=== PATIENT | male | born 1935 | race Caucasian/White ===

== ENCOUNTER 2018-07-07 13:43 | Emergency (ER) | payer MEDICARE, BC ==
[~2018-07-07] VITALS: Ht 177.8 cm; Wt 95.5 kg
[2018-07-07 13:51] VITALS: BP 123/76
[2018-07-07] MEDS ORDERED: acetaminophen 325mg tablet PO ONE (15:05)
[2018-07-07] MEDS ORDERED: HYDR-3965 PO (15:13)
[2018-07-07] MEDS ORDERED: ONDA4TAB9 PO (15:13)
== END 2018-07-07 15:42 | disposition home or self-care (01) ==
LOC: ER 13:43
DX: S73.102A Unspecified sprain of left hip, initial encounter (principal); Z98.890 Other specified postprocedural states; Z79.899 Other long term (current) drug therapy; W11.XXXA Fall on and from ladder, initial encounter; Y93.89 Activity, other specified; Y92.89 Other specified places as the place of occurrence of the external cause; Y99.8 Other external cause status
CPT/HCPCS: 72192; 73502; 99284

== ENCOUNTER 2019-06-11 19:39 | Emergency (ER) | payer MEDICARE, BC ==
[~2019-06-11] VITALS: Ht 177.8 cm; Wt 90.0 kg
[2019-06-11] MEDS ORDERED: metoclopramide 5 mg/ml inj IV ONE (20:50)
[2019-06-11] MEDS ORDERED: normal saline 1000ML IV soln IVB ONE (20:50)
[2019-06-11 21:12] LABS: OCCULT BLOOD STOOL NEGATIVE (Neg)
[2019-06-11 21:15] LABS: BASOPHILS # (AUTO) 0.1 X10'3 (0-0.2); BASOPHILS % (AUTO) 0.5 % (0-1); EOSINOPHILS # (AUTO) 0.1 X10'3 (0-0.9); EOSINOPHILS % (AUTO) 0.6 % (0-6); HEMATOCRIT 44.7 % (42.0-52.0); HEMOGLOBIN 14.9 g/dl (14.0-17.9); LYMPHOCYTES # (AUTO) 1.1 X10'3 (1.1-4.8); LYMPHOCYTES % (AUTO) 11.9 % (21-51); MEAN CORPUSCULAR HEMOGLOBIN 30.5 PG (27.0-31.0); MEAN CORPUSCULAR HGB CONC 33.2 g/dL (33.0-36.5); MEAN CORPUSCULAR VOLUME 91.9 FL (78-98); MONOCYTES # (AUTO) 0.7 X10'3 (0-0.9); MONOCYTES % (AUTO) 7.4 % (2-12); NEUTROPHILS # (AUTO) 7.6 X10'3 (1.8-7.7); NEUTROPHILS % (AUTO) 79.6 % (42-75); PLATELET COUNT 193 X10'3 (140-440); RED BLOOD COUNT 4.87 X10'6 (4.70-6.10); RED CELL DISTRIBUTION WIDTH 14.3 % (11.5-14.5); WHITE BLOOD COUNT 9.5 X10'3 (4.5-11.0)
[2019-06-11 21:29] LABS: ALANINE AMINOTRANSFERASE 30 U/L (12-78); ALBUMIN 4.3 G/DL (3.4-5.0); ALBUMIN/GLOBULIN RATIO 1.3 (1.1-1.5); ALKALINE PHOSPHATASE 93 IU/L (46-116); ANION GAP 11 (8-16); ASPARTATE AMINO TRANSFERASE 18 U/L (10-37); BILIRUBIN,TOTAL 0.9 MG/DL (0.1-1.0); BLOOD UREA NITROGEN 22 MG/DL (7-18); BUN/CREATININE RATIO 14.5 (5.4-32.0); CALCIUM 10.5 MG/DL (8.5-10.1); CHLORIDE 107 MMOL/L (99-107); CREATININE 1.52 MG/DL (0.60-1.10); GLUCOSE 126 MG/DL (70-104); POTASSIUM 4.1 MMOL/L (3.5-5.1); SODIUM 142 MMOL/L (135-145); TOTAL CARBON DIOXIDE 23.8 MMOL/L (24-32); TOTAL PROTEIN 7.6 G/DL (6.4-8.2); eGFR 44 ML/MIN
[2019-06-11 21:30] VITALS: BP 113/77
[2019-06-11] MEDS ORDERED: POLY17PO10 PO (21:39)
[2019-06-11] MEDS ORDERED: lactulose 20gm/30ml cup PO ONE (21:40)
== END 2019-06-11 22:11 | disposition home or self-care (01) ==
LOC: ER 19:40
DX: K59.00 Constipation, unspecified (principal); C61 Malignant neoplasm of prostate; Z98.890 Other specified postprocedural states
CPT/HCPCS: 36415; 74018; 80053; 82272; 85025; 96374; 99284; J2765; J7030